=== PATIENT | male | born 1955 | race Caucasian/White ===

== ENCOUNTER 2016-06-27 08:33 | Day surgery (SDC) | payer OTHER ==
[2016-06-24 15:17] VITALS: BMI 25.2
[~2016-06-27 08:33] MED LIST: LACTATED RINGERS 1,000 ML IV SCH
[2016-06-27 08:59] VITALS: RESP 16; TEMP 98
[2016-06-27] MEDS ORDERED: LIDOCAINE 1% 20 ML VIAL (10MG/ML) FOR IV START INTRADERMA ONE (09:03)
[2016-06-27] MEDS ORDERED: PROPOFOL 10 MG/ML 20 ML VIAL IV ONE (09:26)
[2016-06-27] MEDS ORDERED: GLYCOPYRROLATE 0.2 MG/ML 2 ML VIAL ONE (09:26)
[2016-06-27] MEDS ORDERED: LIDOCAINE 1% INJ 10MG/ML (20 ML MDV) ONE (09:26)
--- NOTE | 2016-06-27 10:00 | P.PCN ---
Date of Procedure: 06/27/16 Procedure(s) Performed: Procedure: Total colonoscopy. Preoperative diagnosis: Positive occult blood in the stools and history of polyps. Postoperative diagnosis: Examination within normal limits. Preparation: HalfLytely prep. Sedation: Was provided by anesthesia. Brief clinical history: The patient is a 60-year-old male who is scheduled for this evaluation because of finding of occult blood in his stools. The patient has history of polyps and his last examination was in July 2012. He has no abdominal complaints overt bleeding or anemia. Procedure: With the patient on his left lateral decubitus position and after informed consent and adequate sedation the perianal area was inspected and it did not show any fissures or fistulas. There were no masses felt on digital rectal examination. The Olympus CFQ 160L video colonoscope was then inserted in the rectum in the usual fashion and advanced to the cecum. The mucosa appeared healthy. No polyps or tumors were seen or any obvious diverticular disease or other pathology. I retroflexed endoscope in the rectum before the endoscope was withdrawn. Low-grade internal hemorrhoids were hardly noted and there was no evidence of bleeding. The patient tolerated the procedure well. Plan: The patient was reassured. In the absence of upper GI complaints or anemia, I did not recommend upper GI workup for further workup of his Hemoccult positive stools. This can be kept as a contingency. With his history of polyps I recommended a repeat exam in 5 years from this date.
[2016-06-27 10:17] VITALS: BP 115/75; PULSE 56
== END 2016-06-27 11:08 | disposition home or self-care (01) ==
LOC: ORWHC2ENDO 08:33
DX: R19.5 Other fecal abnormalities (principal); Z86.010 Personal history of colon polyps; K64.8 Other hemorrhoids; E78.5 Hyperlipidemia, unspecified; Z79.899 Other long term (current) drug therapy
CPT/HCPCS: 45378; J2001; J2704

== ENCOUNTER 2016-08-30 09:14 | Inpatient (IN) | payer OTHER ==
[2016-08-30] MEDS ORDERED: NITROGLYCERIN OINT 1 INCH/GM PACKET TOPICAL STA (09:32)
[2016-08-30] MEDS ORDERED: ASPIRIN 81 MG CHEW PO STA (09:32)
[2016-08-30] MEDS ORDERED: HEPARIN SODIUM,PORCINE 5,000 UNIT/ML 1 ML VIAL IV ONE (09:33)
[2016-08-30] MEDS ORDERED: ATORVASTATIN 80 MG TAB PO STA (09:33)
--- NOTE | 2016-08-30 09:42 | ED ---
General Adult HPI - General Chief complaint: Chest Pain Stated complaint: abnormal EKG Time Seen by Provider: 08/30/16 09:15 Source: patient, RN notes reviewed Mode of arrival: ambulatory Limitations: no limitations - History of Present Illness Initial comments: Is a 60-year-old male who presents to the emergency department complaining that he had chest pain on Friday he states it was across his whole chest and into his back he stated he took some Motrin eventually it subsided to a dull ache and that dull ache lasted approximately 2 days per patient states he was also short of breath during this pain. Patient states was no radiation of the arm or the neck. Patient denies any nausea. Patient denied any diaphoretic episodes. Patient states this occurred while he was working in the yard and pushing himself quite hard. Patient states since Friday he's had no chest pain or difficulty breathing. Patient went to his primary medical care doctor's office today and EKG was done and showed an acute NC and he was sent immediately to the emergency department. Dr. Cason wanted to send the patient via and goes but the patient refused and drove himself to the hospital. Patient denies any abdominal pain patient denies nausea vomiting diarrhea. - Related Data Home Medications Medication Instructions Recorded Confirmed Co Q-10 (Unknown Dose) 1 tab PO DAILY 06/24/16 06/27/16 Simvastatin [Simvastatin] 20 mg PO HS 06/24/16 06/27/16 Tamsulosin HCl [Tamsulosin HCl] 0.4 mg PO DAILY 06/24/16 06/27/16 Allergies Allergy/AdvReac Type Severity Reaction Status Date / Time No Known Allergies Allergy Verified 08/30/16 09:24 Review of Systems ROS Statement: Those systems with pertinent positive or pertinent negative responses have been documented in the HPI. ROS Other: All systems not noted in ROS Statement are negative. Past Medical History Additional Past Medical History / Comment(s): SL BLOOD ON STOOL SAMPLE. BPH. was told by urologist has 2 kidney stones - denies passing them General Exam - General Exam Comments Initial Comments: GENERAL: Patient is well-developed and well-nourished. Patient is nontoxic and well- hydrated and is in no acute distress. ENT: Neck is soft and supple. No significant lymphadenopathy is noted. Oropharynx is clear. Moist mucous membranes. Neck has full range of motion without eliciting any pain. EYES: The sclera were anicteric and conjunctiva were pink and moist. Extraocular movements were intact and pupils were equal round and reactive to light. Eyelids were unremarkable. PULMONARY: Unlabored respirations. Good breath sounds bilaterally. No audible rales rhonchi or wheezing was noted. CARDIOVASCULAR: There is a regular rate and rhythm without any murmurs gallops or rubs. Femoral pulses are equal bilaterally ABDOMEN: Soft and nontender with normal bowel sounds. No palpable organomegaly was noted. There is no palpable pulsatile mass. SKIN: Skin is clear with no lesions or rashes and otherwise unremarkable. NEUROLOGIC: Patient is alert and oriented x3. Cranial nerves II through XII are grossly intact. Motor and sensory are also intact. Normal speech, volume and content. Symmetrical smile. MUSCULOSKELETAL: Normal extremities with adequate strength and full range of motion. No lower extremity swelling or edema. No calf tenderness. LYMPHATICS: No significant lymphadenopathy is noted PSYCHIATRIC: Normal psychiatric evaluation. Limitations: no limitations Course Vital Signs 08/30/16 09:15 Temperature 97.1 F L Pulse Rate 75 Respiratory 16 Rate Blood Pressure 135/78 O2 Sat by Pulse 100 Oximetry Medical Decision Making - Medical Decision Making EKG shows normal sinus rhythm at 64 bpm OK interval is 128 QRS is 92 QT interval 394 QTC is 46. Patient's EKG shows ST segment elevation in V2 through V6 as well as 1 and aVL. Patient also has some ST segment elevation in lead 2. Patient currently is symptom-free. Because of the EKG and the patient's symptoms previously I initially called a STEMI overhead and I spoke with Dr. Trista Weston came down and see the patient emergency department we prepped the patient for the Cake Mixer. Patient received heparin Lipitor aspirin and Nitropaste. Critical Care Time Critical Care Time: Yes Total Critical Care Time: 35 Disposition Clinical Impression: ST elevation myocardial infarction (STEMI) Disposition: ADMITTED IP TO THIS HOSP Referrals: Gurmeet Cason MD [Primary Care Provider] - 1-2 days Time of Disposition: 09:42
[2016-08-30] MEDS ORDERED: SODIUM CHLORIDE 0.9% 1,000 ML IV ONE ×2 (09:54→10:57)
--- NOTE | 2016-08-30 09:57 | XR ---
EXAMINATION TYPE: XR chest 1V portable DATE OF EXAM: 08/30/2016 HISTORY: Chest Pain. REFERENCE: NONE. FINDINGS: There are calcified granulomas in both lungs. The lungs are otherwise clear. Pleural space are clear. Heart size is normal. IMPRESSION: 1. NO ACUTE INTRATHORACIC ABNORMALITY. 2. EVIDENCE OF OLD GRANULOMATOUS DISEASE.
[2016-08-30 10:02] LABS: Basophils % (A) 1 %; CH 29.5; CHCM 33.2; Eosinophils # (A) 0.2 k/uL (0-0.7); Eosinophils % (A) 2 %; HCT 39.5 % (39.0-53.0); HDW 2.26; Luc # (Auto) 0.22; Luc % (Auto) 3; Lymphocytes # (A) 1.6 k/uL (1.0-4.8); Lymphocytes % (A) 25 %; MCH 29.3 pg (25.0-35.0); MCHC 32.9 g/dL (31.0-37.0); MCV 89.2 fL (80.0-100.0); Monocytes # (A) 0.7 k/uL (0-1.0); Monocytes % (A) 11 %; Neutrophils # (A) 3.8 k/uL (1.3-7.7); Neutrophils % (A) 58 %; RBC 4.44 m/uL (4.30-5.90); WBC 6.5 k/uL (3.8-10.6); WBC (Perox) 6.69
[2016-08-30] MEDS ORDERED: MIDAZOLAM 2 MG/2 ML VIAL IV ONE (10:03)
[2016-08-30] MEDS ORDERED: MIDAZOLAM 2 MG/2 ML VIAL ONE (10:04)
[2016-08-30] MEDS ORDERED: LIDOCAINE 2% INJ 20 MG/ML SQ ONE (10:06)
[2016-08-30] MEDS ORDERED: fentaNYL (PF) 50 MCG/ML 2 ML AMP ONE (10:07)
[2016-08-30] MEDS ORDERED: fentaNYL (PF) 50 MCG/ML 2 ML AMP IV ONE (10:07)
[2016-08-30 10:12] LABS: Partial Thromboplastin Time 25.6 sec (22.0-30.0); Prothrombin Time 10.2 sec (9.0-12.0)
[2016-08-30 10:14] LABS: ALT 54 U/L (21-72); AST 37 U/L (17-59); Alkaline Phosphatase 73 U/L (38-126); Anion Gap 6 mmol/L; Blood Urea Nitrogen 14 mg/dL (9-20); Calcium 8.9 mg/dL (8.4-10.2); Carbon Dioxide 28 mmol/L (22-30); Chloride 105 mmol/L (98-107); Glucose 110 mg/dL (74-99); Magnesium 2.3 mg/dL (1.6-2.3); Non-African American GFR(MDRD) >60 (>60 ml/min/1.73 sqM); Potassium 4.5 mmol/L (3.5-5.1); Sodium 139 mmol/L (137-145); Total Bilirubin 0.8 mg/dL (0.2-1.3); Total Protein 6.9 g/dL (6.3-8.2)
[2016-08-30] MEDS ORDERED: BIVALIRUDIN BOLUS 250 MG/50 ML IV ONE (10:20)
[2016-08-30] MEDS ORDERED: BIVALIRUDIN 250 MG in SODIUM CHLORIDE 0.9% 50 ML IV ONE (10:21)
[2016-08-30] MEDS ORDERED: niCARdipine Syringe (1,000 mcg/10 mL) IV ONE (10:36)
[2016-08-30] MEDS ORDERED: HYDROmorphone 2 MG/ML 1 ML SYRINGE ONE (10:42)
[2016-08-30] MEDS ORDERED: HYDROmorphone 2 MG/ML 1 ML SYRINGE IV ONE (10:44)
[2016-08-30 10:46] LABS: Troponin I 6.39 ng/mL (0.000-0.034)
[2016-08-30] MEDS ORDERED: CLOPIDOGREL 75 MG TAB ONE (10:48)
[2016-08-30] MEDS ORDERED: NITROGLYCERIN SL TABS 0.4 MG TAB SUBLINGUAL PRN (10:53)
[2016-08-30] MEDS ORDERED: ATROPINE SULFATE 0.1 MG/ML 10ML SYRINGE IV PRN (10:53)
[2016-08-30] MEDS ORDERED: MAG HYDROX/AL HYDROX/SIMETH 30 ML CUP PO PRN (10:53)
[2016-08-30] MEDS ORDERED: RX INFO: IV CONTRAST WAS GIVEN 1 EACH MISC MISCELLANE PRN (10:53)
[2016-08-30] MEDS ORDERED: ZOLPIDEM 5 MG TAB PO PRN (10:53)
[2016-08-30] MEDS ORDERED: IOHEXOL 350 MG/ML 125ML BOTTLE INJ ONE (10:55)
[2016-08-30] MEDS ORDERED: CLOPIDOGREL 75 MG TAB PO ONE (10:57)
--- NOTE | 2016-08-30 11:12 | CONS ---
DATE OF CONSULTATION: CHIEF COMPLAINT: Chest pain. This is a 60-year-old gentleman with history of dyslipidemia who presented to [facility] from his doctor's office with chest pain and ST-segment elevation in the anterior leads. Patient started having severe precordial chest pressure 9/10 intensity on Friday, lasted for a while and has gradually come down and he went to his primary care physician's today where he was found to have an myocardial infarction and sent to the ER. At the time of my evaluation, he still has some chest discomfort and has persistent ST-segment elevation in the precordial leads. I advised the patient to undergo emergent cardiac catheterization with agreeing to performing angioplasty. Patient was explained of risks, benefits, and alternatives, understood and accepted. Past medical history significant for dyslipidemia. MEDICATIONS: He is on a statin. ALLERGIES: Denies any. FAMILY HISTORY: Negative for premature coronary artery disease. SOCIAL HISTORY: Negative for current smoking, EtOH abuse or drug abuse. REVIEW OF SYSTEMS: HEENT is unremarkable. CARDIAC: As described above. RESPIRATORY: Negative. GI: Negative. GENITOURINARY: Negative. ALLERGY/IMMUNOLOGY: Negative. MUSCULOSKELETAL: Negative. ENDOCRINE: Negative. DERMATOLOGY: Negative. CONSTITUTIONAL: Negative. ONCOLOGICAL: Negative. The rest of the system review is not relevant. On exam, comfortable at rest. Vital signs are stable. There is no jugular venous distention. Carotid upstroke is normal. There is no bruit. Chest is clear to auscultation and percussion. Heart exam reveals first and second heart sounds. No gallop. No murmur, no rub. Abdomen is soft, nontender. Exam of the extremities did not reveal edema. Peripheral pulses are felt. FISHERIES MANAGER exam did not reveal focal neurological deficits. ASSESSMENT: Acute anterior wall myocardial infarction with post-infarct angina. Patient probably infarcted over the weekend. PLAN: Patient will undergo emergent cardiac catheterization. His prognosis guarded.
--- NOTE | 2016-08-30 11:14 | CC ---
DATE OF SERVICE: After obtaining informed consent, left heart catheterization and coronary angiogram are performed via the right femoral artery using standard David catheters. Patient tolerated the procedure well without any obvious immediate complications. FINDINGS: 1. HEMODYNAMICS: Left ventricular end-diastolic pressure is 18 mm. There is no significant gradient across the aortic valve. 2. LEFT VENTRICULOGRAM: Left ventriculogram was not performed. 3. ANGIOGRAPHIC DATA: LEFT MAIN CORONARY ARTERY: Left main coronary artery is a normal size vessel and is free of stenosis. It divides into left anterior descending coronary artery and circumflex coronary artery. LAD shows a 95% stenosis in its midportion. Circumflex coronary artery and its branches are free of significant disease. Right coronary artery is a large dominant vessel and is free of significant stenosis. CONCLUSION: A 95% stenosis involving mid left anterior descending artery with thrombus and, probably due to plaque rupture. Patient will undergo angioplasty of the same.
--- NOTE | 2016-08-30 11:41 | PTCA ---
DATE OF SERVICE: 08/30/2016 PROCEDURE: PTCA and stenting of a totally occluded mid LAD performed in the setting of an acute anterior ST-elevation OR. Performed by Dr. Juan Jose Robbins. CLINICAL INFORMATION: Mr. Abhishek Cottrell is a 60-year-old gentleman with a history of hyperlipidemia and benign prosthetic hypertrophy who is not a smoker and has no other major risk factors, came into the hospital with chest pain, which started actually almost 5 to 6 days ago with worst pain almost 5 days ago. He came in with chest pain, had ST elevation and was evaluated and promptly underwent cardiac cath performed by: Dr. Weston. Following the procedure, I went ahead and performed intervention. PROCEDURE NOTE: Existing 6 Andorran introducer in the right femoral artery was used to perform the procedure. I used a standard left David-type guide catheter to cannulate the left coronary artery. A BMW wire was used to cross the lesion. Predilatation was performed using a 12 mm long Trek balloon of 2.5 caliber. I then deployed a 3.0 caliber 15 mm long Xience stent at 12 atmospheres. Patient had chest pain and more prominent ST elevation anteriorly. Excellent angiographic result without complication was achieved. The patient received 600 mg of Plavix and Angiomax bolus and drip was given as per protocol. Excellent angiographic result without complication was achieved. LV gram was then performed in the 30 degree WILEY projection and LV pressures were checked. There was no gradient across the aortic valve and ejection fraction is about 30% with anteroapical and inferoapical akinesia. Reperfusion was established in 85 minutes. This patient received 45 minutes of moderate conscious sedation with IV Versed, Benadryl and also received Dilaudid intravenously. A Perclose device was used to secure hemostasis and patient was sent to the room in a stable condition. Results were discussed with the patient and family. MARIA A
--- NOTE | 2016-08-30 11:44 | LTR ---
August 30, 2016 RE: SimbaAbhishek Dear Dr. Cason; Thank you for the opportunity to participate in the care of Mr. Cottrell. I am pleased to report to you that this gentleman had an excellent angiographic result. He presented today to the hospital with acute AK perhaps a little late, and LAD was subtotally occluded. Excellent angiographic result without complication was achieved. I expect he should recover well, but he will definitely have some damage to the anterior wall. Please find enclosed my detailed PTCA report for your records. Thank you for your referral and please call for questions. With kindest regards. Sincerely yours, RICKY ENCARNACION MD
[2016-08-30 14:53] LABS: Glucose,Whole Blood 151 mg/dL (75-99)
[2016-08-30] MEDS: SODIUM CHLORIDE 0.9% 1,000 ML IV SCH (15:32)
[2016-08-30] MEDS: LISINOPRIL 5 MG TAB PO SCH (20:54)
[2016-08-30] MEDS: TAMSULOSIN 0.4 MG CAP.ER.24H PO SCH (20:54)
[2016-08-30] MEDS: METOPROLOL TARTRATE 25 MG TAB PO SCH (20:54)
--- NOTE | 2016-08-30 22:55 | HP ---
DATE OF ADMISSION: 08/30/2016 PRESENTING COMPLAINT: Chest pain. HISTORY OF PRESENTING COMPLAINT: A very pleasant 60-year-old patient of Dr. Cason whose chronic stable medical conditions include hypercholesterolemia, BPH, kidney stones. Patient last Friday, that is about 6 days ago, was digging a trench at about 50 feet at the back of his house, then used concrete blocks to put the mud back on in. After having lunch with his , he felt extremely tired and exhausted. Next course of few days, he kept having some chest pain and tired, rundown. He would do some things, then he would have some left-sided chest pressure. He finally got an appointment with his family doctor, got an EKG done. He was sent right down to the ER, where he was shown to have an acute ST-elevation TN. Patient was taken to the cardiac labor contractor, had a cardiac cath by Dr. Francisco Weston followed by intervention by Dr. Juan Jose Robbins with a stent in the totally occluded mid LAD. Patient is currently sitting up in a chair, not in distress. Patient has some associated shortness of breath, discomfort and some radiation to the left shoulder. REVIEW OF SYSTEMS: CONSTITUTIONAL: Tired. HEENT: None. RESPIRATORY: None. CARDIOVASCULAR: As above. GASTROINTESTINAL: None. GENITOURINARY: BPH symptoms. DERMATOLOGICAL: None. HEMATOLOGICAL: None. LYMPHATICS: None. PSYCHIATRY: None. NEUROLOGICAL: None. PAST MEDICAL HISTORY: Kidney stones, increased cholesterol, BPH. PAST SURGICAL HISTORY: Bilateral carpal tunnel release, colonoscopy, right shoulder injections. SOCIAL HISTORY: . Works for [employer]. No smoking. alcohol occasionally. FAMILY HISTORY: Diabetes, prostate cancer. HOME MEDICATIONS: 1. CoQ10, 100 mg p.o. daily. 2. Terazosin 5 mg q.h.s. 3. Cialis 5 mg p.o. daily p.r.n. 4. Simvastatin 20 mg p.o. daily. 5. Fish oil 1 capsule p.o. daily. ALLERGIES: None. On examination, temperature 98.1, pulse 70, respiration 22, blood pressure 112/68, pulse ox 92% on room air. GENERAL APPEARANCE: Average build, sitting in chair, not in distress. EYES: Pupils equal. Conjunctivae normal. HEENT: Oral cavity normal. NECK: JVD not raised. Mass not palpable. RESPIRATORY: Effort normal. Lungs are clear. CARDIOVASCULAR: First and second sounds normal. No edema. ABDOMEN: Soft, nontender. Liver and spleen not palpable. LYMPHATIC: No lymph node palpable in neck or axillae. PSYCHIATRY: Alert and oriented x3. Mood and affect normal. NEUROLOGICAL: Pupils equal. Cranial nerves grossly intact. Power and sensation grossly intact. INVESTIGATIONS: EKG: ST elevation in anterior leads. Troponin 6.3, repeat 7.4. ASSESSMENT: 1. Acute ST-elevation myocardial infarction in the anterior wall. Patient requiring emergent cardiac catheterization with stent to the left anterior descending coronary artery. 2. Kidney stones, asymptomatic. 3. Hypercholesterolemia. 4. Benign prostatic hypertrophy. PLAN: This patient is status post stent to the LAD. Medications include: 1. Aspirin. 2. Lipitor. 3. Plavix. 4. Zestril. 5. Flomax. Care was discussed with the patient.
[2016-08-31 05:36] LABS: Basophils % (A) 1 %; CH 29.5; CHCM 33.2; Eosinophils # (A) 0.2 k/uL (0-0.7); Eosinophils % (A) 3 %; HCT 34.7 % (39.0-53.0); HDW 2.27; HGB 11.3 gm/dL (13.0-17.5); Luc # (Auto) 0.13; Luc % (Auto) 2; Lymphocytes # (A) 1.5 k/uL (1.0-4.8); Lymphocytes % (A) 24 %; MCHC 32.5 g/dL (31.0-37.0); MCV 89.1 fL (80.0-100.0); Mean Platelet Volume 6.8; Monocytes # (A) 0.5 k/uL (0-1.0); Monocytes % (A) 8 %; Neutrophils # (A) 3.9 k/uL (1.3-7.7); Neutrophils % (A) 63 %; RDW 12.9 % (11.5-15.5); WBC 6.3 k/uL (3.8-10.6); WBC (Perox) 6.67
[2016-08-31 05:51] LABS: Anion Gap 8 mmol/L; Blood Urea Nitrogen 13 mg/dL (9-20); Calcium 8.6 mg/dL (8.4-10.2); Carbon Dioxide 24 mmol/L (22-30); Chloride 108 mmol/L (98-107); Glucose 93 mg/dL (74-99); Non-African American GFR(MDRD) >60 (>60 ml/min/1.73 sqM); Potassium 4.6 mmol/L (3.5-5.1); Sodium 140 mmol/L (137-145)
[2016-08-31] MEDS: SODIUM CHLORIDE 0.9% 1,000 ML IV SCH (09:32)
[2016-08-31] MEDS: METOPROLOL TARTRATE 25 MG TAB PO SCH ×2 (09:34→20:15)
[2016-08-31] MEDS: LISINOPRIL 5 MG TAB PO SCH (09:35)
[2016-08-31] MEDS: ASPIRIN 81 MG CHEW PO SCH (09:35)
[2016-08-31] MEDS: CLOPIDOGREL 75 MG TAB PO SCH (09:35)
--- NOTE | 2016-08-31 12:11 | PN ---
Abhishek is a 60-year-old gentleman who is admitted to hospital with acute anterior wall myocardial infarction and underwent an emergent cardiac catheterization with angioplasty. I think he already completed his myocardial infarction by the time he came to hospital. His troponin was at 6.3 on presentation, went up to 7.4 and it is down to 6.9. Hemoglobin is 11.3. This morning he is doing well and is free of symptoms. Denies chest pain or difficulty in breathing. Currently on aspirin, Lipitor, Plavix, Zestril, Lopressor 25 b.i.d. Patient and the had lots of questions, I answered them at length. On exam, comfortable at rest. Vital signs are stable. There is no jugular venous distention. Chest exam reveals good air entry bilaterally. Heart exam reveals first and second heart sounds. No gallop. No murmur. Abdomen is soft, nontender. Exam of the extremities did not reveal any edema. Peripheral pulses are felt. Groin is free of bleeding, bruit, hematoma. Foot pulses are intact. ASSESSMENT: 1. Acute anterior wall myocardial infarction, status post catheterization and angioplasty of mid left anterior descending lesion. 2. History of hypertension. 3. History of dyslipidemia. PLAN: I will continue the patient on current medications and transfer him to selective care. I am going to check his echocardiogram.
--- NOTE | 2016-08-31 13:11 | ECHOF ---
Referral Reason:pain/shortness of breath/post procedure MEASUREMENTS -------- HEIGHT: 175.3 cm WEIGHT: 77.1 kg BP: 120/50 IVSd: 1.5 cm (0.6 - 1.1) LVIDd: 4.7 cm (3.9 - 5.3) LVPWd: 1.3 cm (0.6 - 1.1) IVSs: 1.7 cm LVIDs: 3.5 cm LVPWs: 1.6 cm LA Diam: 3.3 cm (2.7 - 3.8) LAESV Index (A-L): 20.64 ml/m Ao Diam: 3.1 cm (2.0 - 3.7) AV Cusp: 1.0 cm (1.5 - 2.6) LA Diam: 3.4 cm (2.7 - 3.8) MV EXCURSION: 24.295 mm (> 18.000) MV EF SLOPE: 214 mm/s (70 - 150) EPSS: 0.2 cm MV E Clark: 0.65 m/s MV DecT: 162 ms MV A Clark: 0.46 m/s MV E/A Ratio: 1.42 RAP: 5.00 mmHg RVSP: 30.01 mmHg FINDINGS -------- Sinus rhythm. This was a technically adequate study. There is mild concentric left ventricular hypertrophy. Overall left ventricular systolic function is severely impaired with, an EF between 25 - 30 %. Anterseptal Hypokinesis Inferior Hypokinesis Septal Hypokinesis [place] Hypokinesis. The right ventricle is normal in size. Normal LA size by volume 22+/-6 ml/m2. The right atrial size is normal. There is mild aortic valve sclerosis. There is no evidence of aortic regurgitation. Mild mitral annular calcification present. Mild mitral regurgitation is present. Mild tricuspid regurgitation present. There is no evidence of pulmonary hypertension. The right ventricular systolic pressure, as measured by Doppler, is 30.01mmHg. There is no pulmonic regurgitation present. There is no pericardial effusion. CONCLUSIONS -------- 1. There is mild concentric left ventricular hypertrophy. 2. Mild tricuspid regurgitation present. 3. There is no evidence of pulmonary hypertension. 4. The right ventricular systolic pressure, as measured by Doppler, is 30.01mmHg. 5. There is no pericardial effusion. 6. Overall left ventricular systolic function is severely impaired with, an EF between 25 - 30 %. 7. Anterseptal Hypokinesis 8. Inferior Hypokinesis 9. Septal Hypokinesis 10. [place] Hypokinesis. 11. There is mild aortic valve sclerosis. 12. Mild mitral annular calcification present. 13. Mild mitral regurgitation is present. SHIFT LEADER: Izabel Harris RDCS
[2016-08-31 13:14] VITALS: BMI 25.1
[2016-08-31] MEDS: TAMSULOSIN 0.4 MG CAP.ER.24H PO SCH (20:15)
[2016-08-31] MEDS: ATORVASTATIN 80 MG TAB PO SCH (20:15)
[2016-09-01] MEDS: METOPROLOL TARTRATE 25 MG TAB PO SCH ×2 (08:37→20:32)
[2016-09-01] MEDS: CLOPIDOGREL 75 MG TAB PO SCH (08:38)
[2016-09-01] MEDS: LISINOPRIL 5 MG TAB PO SCH (08:38)
[2016-09-01] MEDS: ASPIRIN 81 MG CHEW PO SCH (08:38)
--- NOTE | 2016-09-01 09:54 | DS ---
DATE OF ADMISSION: 08/30/2016 DATE OF DISCHARGE: PRESENTING COMPLAINT: Chest pain. INTERVAL HISTORY: This patient presented with acute IN, status post ( ) sitting up, been up to the bathroom. No chest pain, short of breath tolerating his breakfast. Telemetry normal. Review of systems done for constitutional, cardiovascular, GI, pulmonary, relevant findings as above. Current medications are reviewed. On examination, pulse 76, respiratory rate 22, blood pressure 114/72. Pulse ox 99% on room air. GENERAL APPEARANCE: Sitting up in a chair, comfortable. EYES: Pupils equal. Conjunctivae normal. NECK: JVD not raised. Mass not palpable. RESPIRATORY: Effort normal. LUNGS: Clear. CARDIOVASCULAR: First and second sounds normal. No edema. ABDOMEN: Soft, nontender. Liver and spleen not palpable. PSYCHIATRY: Alert and oriented x3. Mood and affect normal. INVESTIGATIONS: Potassium 4.6. ASSESSMENT: 1. Acute ST elevation myocardial infarction of the anterior wall, patient requiring emergent cardiac cath with stent to the left anterior descending coronary artery. 2. Kidney stone, asymptomatic. 3. Hypercholesterolemia. 4. Benign prostatic hypertrophy. PLAN: Care was discussed with the patient, continue current medication and treatment plan. Patient encouraged to ambulate. The patient will be transferred out of the ICU if okay with cardiology.
--- NOTE | 2016-09-01 13:22 | PN ---
60-year-old gentleman was admitted to hospital with acute anterior wall myocardial infarction. Doing well and is free of symptoms today. Echocardiogram showed severe LV systolic dysfunction. The patient is currently on aspirin, Plavix, Zestril, Lopressor and Lipitor. On exam, comfortable at rest. Vital signs are stable. There is no jugular venous distention. Chest exam reveals good air entry bilaterally. Heart exam reveals first and second heart sounds. No gallop. ABDOMEN: Soft. Exam of the extremities did not reveal edema. Peripheral pulses are felt. ASSESSMENT: 1. Acute anterior wall myocardial infarction. 2. Ischemic cardiomyopathy with severe left ventricular dysfunction. PLAN: We will continue with the current medications including the dual antiplatelet therapy and decide on further course of action based on how he does.
[2016-09-01] MEDS: ATORVASTATIN 80 MG TAB PO SCH (20:32)
[2016-09-01] MEDS: TAMSULOSIN 0.4 MG CAP.ER.24H PO SCH (20:33)
[2016-09-02 04:41] VITALS: RESP 18
--- NOTE | 2016-09-02 06:25 | PN ---
DATE OF SERVICE: 09/01/2016 PRESENTING COMPLAINT: Chest pain. INTERVAL HISTORY: This is a patient who is status post stent to the mid LAD. Patient is sitting in the chair tolerating breakfast. Pain controlled. Ambulating in the hallways. Patient does complain of dizziness while sitting in the chair and when moving around. Review of systems done for constitutional, cardiovascular, GI, pulmonary with relevant findings as above. CURRENT MEDICATIONS: Lipitor 80 mg p.o. at bedtime, Plavix 75 mg p.o. daily, Zestril 2.5 mg p.o. daily, Lopressor 25 mg p.o. b.i.d. PHYSICAL EXAM: VITAL SIGNS: Temperature 97.8, pulse 72, respiratory rate 13, blood pressure 105/61, oxygen saturation 99% room air GENERAL APPEARANCE: Patient is sitting up in the chair. No distress noted. EYES: Pupils equal. Conjunctivae normal. NECK: JVD not raised. Mass not palpable. RESPIRATORY: Effort normal. LUNGS: Diminished bilaterally. CARDIOVASCULAR: First and second sounds noted. No edema. ABDOMEN: Soft, nontender. Liver and spleen not palpable PSYCHIATRY: Alert and oriented x3. Mood and affect are normal. INVESTIGATIONS: Hemoglobin 11.3. ASSESSMENT: 1. Acute ST elevation myocardial infarction in the anterior wall. Patient is status post cardiac catheterization with stent to the left anterior descending coronary artery, improving. 2. Kidney stones, asymptomatic. 3. Hypercholesterolemia. 4. Benign prostatic hypertrophy. 5. Dizziness, not otherwise specified. PLAN: Orthostatic vital signs to be taken to evaluate patient's dizziness. Will continue current medication and treatment plan. Will monitor. Patient was seen and examined by nurse practitioner, Mariya Huang, and all elements of the case discussed with attending, Dr. Scruggs.
[2016-09-02 06:41] LABS: Basophils # (A) 0.1 k/uL (0-0.2); Basophils % (A) 1 %; CH 29.5; CHCM 33.1; Eosinophils # (A) 0.3 k/uL (0-0.7); Eosinophils % (A) 4 %; HCT 42.3 % (39.0-53.0); HDW 2.32; HGB 13.6 gm/dL (13.0-17.5); Luc % (Auto) 2; Lymphocytes # (A) 1.6 k/uL (1.0-4.8); Lymphocytes % (A) 20 %; MCH 28.7 pg (25.0-35.0); MCHC 32.1 g/dL (31.0-37.0); MCV 89.4 fL (80.0-100.0); Mean Platelet Volume 6.6; Monocytes # (A) 0.8 k/uL (0-1.0); Monocytes % (A) 9 %; Neutrophils # (A) 5.3 k/uL (1.3-7.7); Neutrophils % (A) 64 %; RBC 4.73 m/uL (4.30-5.90); RDW 12.8 % (11.5-15.5); WBC 8.3 k/uL (3.8-10.6); WBC (Perox) 8.51
[2016-09-02 06:56] LABS: Anion Gap 10 mmol/L; Blood Urea Nitrogen 19 mg/dL (9-20); Carbon Dioxide 23 mmol/L (22-30); Chloride 107 mmol/L (98-107); Glucose 94 mg/dL (74-99); Non-African American GFR(MDRD) >60 (>60 ml/min/1.73 sqM); Potassium 4.8 mmol/L (3.5-5.1); Sodium 140 mmol/L (137-145)
--- NOTE | 2016-09-02 07:50 | PN ---
ADDENDUM TO PROGRESS NOTE: DATE OF SERVICE: 08/31/2016 Patient's note dictated on 08/31/16 at 12:21, date transcribed 09/01/16 at 0953. This is a progress note and not a discharge summary.
[2016-09-02] MEDS: CLOPIDOGREL 75 MG TAB PO SCH (08:23)
[2016-09-02] MEDS: METOPROLOL TARTRATE 25 MG TAB PO SCH (08:23)
[2016-09-02] MEDS: ASPIRIN 81 MG CHEW PO SCH (08:23)
[2016-09-02 08:30] VITALS: PULSE 74
--- NOTE | 2016-09-02 09:09 | PN ---
DATE OF SERVICE: 09/01/2016 ATTENDING NOTE: This patient was seen and examined by me on 09/01/16. I reviewed the note of my nurse practitioner, Ms. Huang. Discussed additional findings as below. Patient is status post LAD stent, complaining of dizziness, even while sitting up. Blood pressure is running on the lower side. Otherwise been up in the hallway. On examination, blood pressure 105/61, pulse ox 99% on room air. Lungs are clear. CARDIOVASCULAR: First and second sounds normal. No edema/ Hemoglobin is 13.6. ASSESSMENT: 1. Acute ST elevation myocardial infarction. 2. Relative hypotension probably from medications, symptomatic. PLAN: At this point, will cut back on dose of Zestril to 2.5 mg and move it to the afternoon and see how he feels. Care was discussed with the patient and family at the bedside.
--- NOTE | 2016-09-02 10:59 | P.PN ---
Subjective Principal diagnosis: Anterior STEMI This is a 60-year-old gentleman who presented to the hospital with an acute anterior wall ST elevation myocardial infarction. He underwent angioplasty with stent placement of the left anterior descending artery. Echocardiogram with Doppler study was performed which revealed an ejection fraction of 25-30% with anterior septal, inferior, septal, and apical hypokinesia. Patient states yesterday he was having some dizziness and lightheadedness especially after taking a beta good. Today he has not yet experienced those symptoms, and he has been up ambulating with cardiac rehab in the hallway today. He denies any chest pain no difficulty in breathing. All of his monitor strips have been reviewed, patient has had no evidence of ventricular arrhythmias. Blood pressure this morning 118/70, no evidence of orthostatic hypotension. Heart rate in the 70s area Objective - Vital Signs Vital signs: Vital Signs Temp 97.8 F 09/02/16 08:24 Pulse 74 09/02/16 09:13 Resp 18 09/02/16 08:24 BP 115/69 09/02/16 09:13 Pulse Ox 97 09/02/16 09:13 Intake & Output 09/01/16 09/02/16 09/02/16 18:59 06:59 18:59 Intake Total 620 480 Balance 620 480 Weight 77 kg 72.8 kg Intake: Oral 620 480 Other: Voiding Method Urinal Urinal Urinal # Voids 2 1 - Exam PHYSICAL EXAMINATION: HEENT: Head is atraumatic, normocephalic. Pupils equal, round. Neck is supple. There is no elevated jugular venous pressure. HEART EXAMINATION: Heart S1, S2 normal. No murmur or gallop heard. CHEST EXAMINATION: Lungs are clear to auscultation and precussion. No chest wall tenderness is noted on palpation or with deep breathing. ABDOMEN: Soft, nontender. Bowel sounds are heard. No organomegaly noted. EXTREMITIES: 2+ peripheral pulses with no evidence of peripheral edema and no calf tenderness noted. NEUROLOGIC patient is awake, alert and oriented -3. . - Labs CBC & Chem 7: 09/02/16 06:04 09/02/16 06:04 Assessment and Plan (1) ST elevation (STEMI) myocardial infarction involving left anterior descending coronary artery Status: Acute (2) Hyperlipemia Status: Acute (3) Ischemic cardiomyopathy Status: Acute Plan: From cardiology's perspective, patient does have evidence of ischemic cardiomyopathy with a documented ejection fraction of 25-30%. I did have a discussion with Dr. Weston regarding a LifeVest on discharge, patient has had no evidence here of any ventricular arrhythmias. He will be discharged home today , and a follow-up echo will be performed in the office. The patient will be discharged home on aspirin 81 mg daily, Lipitor 80 mg daily, Plavix 75 mg daily , Cipro 2.5 mg daily, metoprolol tartrate 25 mg one tablet by mouth twice a day , Flomax 0.4 mg at at bedtime, and sublingual nitroglycerin as needed for chest pain. He has been provided prescriptions for all of the above medications. DNP note has been reviewed, I agree with a documented findings and plan of care. Patient was seen and examined.
[2016-09-02 11:45] VITALS: BP 116/75; TEMP 97.6
[2016-09-02] MEDS ORDERED: LISINOPRIL 2.5 MG TAB PO SCH (14:00)
--- NOTE | 2016-09-03 10:20 | DS ---
DATE OF ADMISSION: 08/30/2016 DATE OF DISCHARGE: 09/02/2016 FINAL DIAGNOSES: 1. Acute ST-elevation myocardial infarction of the anterior wall requiring emergent cardiac catheter with stent to the left anterior descending coronary artery. 2. Kidney stones, asymptomatic. 3. Hypercholesterolemia. 4. Benign prostatic hypertrophy. 5. Ischemic cardiomyopathy; ejection fraction of 20% to 25%. HOSPITAL COURSE: This patient presented with acute ST elevation myocardial infarction now leading to a stent of the LAD. A 2-D echo showed the EF of 20% to 25%. By the time of discharge, up and about. Doing better. Care was discussed with the patient. CONSULTATIONS: 1. Dr. Kriss Weston from Cardiology. 2. Dr. Juan Jose Robbins from Interventional Cardiology. On exam, lungs are clear. CARDIOVASCULAR: First and second sounds are normal. DISCHARGE MEDICATIONS: 1. Flomax 0.4 mg q.h.s. 2. Nitrostat 0.4 sublingual q.5 p.r.n. 3. Lopressor 25 p.o. b.i.d. 4. Zestril 2.5 mg p.o. at 2 p.m. 5. Plavix 75 mg a day. 6. Lipitor 80 mg q.h.s. 7. Aspirin 81 mg p.o. daily. 8. CoQ10 one hundred mg p.o. daily. 9. Terazosin 5 mg p.o. q.h.s. 10. Fish oil 1000 mg p.o. daily. Follow up with Dr. Gurmeet Cason on 09/04/2016; follow up with Dr. Francisco Weston on 09/12/2016.
== END 2016-09-02 13:06 | disposition home or self-care (01) | DRG 247 ==
LOC: EC 09:14 → 6ICU 09:42 → 6SEL 09-01 16:12
PROVIDERS: ADMIT Hospitalist; ATTEND Hospitalist
PROC: B2111ZZ Fluoroscopy of Multiple Coronary Arteries using Low Osmolar Contrast (ICD-10-PCS; principal; 2016-08-30 10:05)
PROC: 4A023N7 Measurement of Cardiac Sampling and Pressure, Left Heart, Percutaneous Approach (ICD-10-PCS; principal; 2016-08-30 10:05)
PROC: 027034Z Dilation of Coronary Artery, One Artery with Drug-eluting Intraluminal Device, Percutaneous Approach (ICD-10-PCS; 2016-08-30 10:05)
DX: I21.02 ST elevation (STEMI) myocardial infarction involving left anterior descending coronary artery (principal); I23.7 Postinfarction angina; I95.9 Hypotension, unspecified; I10 Essential (primary) hypertension; E78.5 Hyperlipidemia, unspecified; E78.00 Pure hypercholesterolemia, unspecified; I25.5 Ischemic cardiomyopathy; N20.0 Calculus of kidney; N40.0 Benign prostatic hyperplasia without lower urinary tract symptoms; Z79.82 Long term (current) use of aspirin; Z79.899 Other long term (current) drug therapy; R42 Dizziness and giddiness; T50.905A Adverse effect of unspecified drugs, medicaments and biological substances, initial encounter
CPT/HCPCS: 71010; 80048; 80053; 82550; 82553; 83735; 84484; 85025; 85610; 85730; 93005; 93306; 93458

== ENCOUNTER → 2017-08-20 | Outpatient (CLI) | payer OTHER ==
--- NOTE | 2017-08-20 14:11 | CT ---
EXAMINATION TYPE: CT abdomen w con DATE OF EXAM: 08/20/2017 COMPARISON: NONE INDICATION: Microscopic hematuria DLP: 684.50 mGycm, Automated exposure control for dose reduction was used. CONTRAST: 100 ml mL of Isovue 300. Study performed with Oral Contrast TECHNIQUE: Axial images were obtained from above the diaphragm to the pubic rami in the axial plane a t 5 mm thick sections. Reconstructed images are reviewed on the computer in the coronal plane. FINDINGS: Limited CT sections are obtained the lung bases. The lung bases are clear. CT ABDOMEN: Liver: Normal Spleen: Normal Pancreas: Normal Adrenal glands: The adrenal glands are normal. Gallbladder: Normal Kidneys: No masses are evident. No hydronephrosis is present. No cysts are present. Delayed images were obtained through the kidneys, which remain unremarkable. Note is made of punctate calcification s within the right kidney. Please see noncontrast CT abdomen study same date. Aorta: Normal Inferior vena cava: Normal. Bowel: Loops of bowel within the abdomen and visualized pelvis are normal. There are loops of bow el which are incompletely distended or lack oral contrast limiting their evaluation. IMPRESSIONS: 1. Punctate right renal stones.
--- NOTE | 2017-08-20 14:17 | CT ---
EXAMINATION TYPE: CT abdomen pelvis wo con DATE OF EXAM: 08/20/2017 COMPARISON: CT abdomen postcontrast 08/20/2017 INDICATION: Microscopic hematuria DLP: 684.50 mGycm, Automated exposure control for dose reduction was used. CONTRAST: 0 mL of Isovue 300. Study performed without Oral Contrast TECHNIQUE: Axial images were obtained from above the diaphragm to the pubic rami in the axial plane a t 5 mm thick sections. Reconstructed images are reviewed on the computer in the coronal plane. FINDINGS: Limited CT sections are obtained the lung bases. The lung bases are clear. CT ABDOMEN: Liver: Normal Spleen: Normal Pancreas: Normal Adrenal glands: The adrenal glands are normal. Gallbladder: Normal Kidneys: No masses are evident. No hydronephrosis is present. No cysts are present. There is a 0.3 cm posterior lower pole left renal calcification. Some faint additional adjacent calcification may b e present. Within the inferior pole right kidney are several calcifications. The anterior inferior ri ght kidney: Measures 0.3 cm. A lateral inferior pole renal stone measures 0.3 cm a mid to inferior ri ght renal calcification measures 0.3 cm. These calcifications are nonobstructing. No hydronephrosis o r hydroureter is evident. Aorta: Minimal calcification is within the right common iliac artery. Aortic contains no suspicious c alcification. Inferior vena cava: Normal. CT PELVIS: Loops of bowel within the abdomen and pelvis are normal. There are loops of bowel which are incom pletely distended or lack oral contrast limiting their evaluation. Appendix: Normal as visualized. Urinary bladder: Normal. No intravesical calcifications are evident. Genitourinary structures: Prostate is prominent. Prostate calcification is also noted. Osseous structures: No suspicious lytic or sclerotic lesions. There is a sclerotic area within the po sterior lateral L2 vertebral level. Postcontrast delayed images were obtained. The kidneys remain unremarkable. IMPRESSIONS: 1. Bilateral nonobstructing inferior pole renal stones. 2. Prostate prominence.
== END | disposition home or self-care (01) ==
LOC: RADCTMAIN 08:08
PROVIDERS: ATTEND Urology
DX: N20.0 Calculus of kidney (principal)
CPT/HCPCS: 74160; 74176; Q9967

== ENCOUNTER → 2020-12-05 | Outpatient (CLI) | payer OTHER ==
--- NOTE | 2020-12-05 13:14 | US ---
EXAMINATION TYPE: US abdomen complete DATE OF EXAM: 12/05/2020 COMPARISON: CT, renal US CLINICAL HISTORY: R10.11 right upper quad pain. Right lateral abdomen pain and pressure; history of r enal stones, CAD with Stent EXAM MEASUREMENTS: Liver Length: 12.4 cm Gallbladder Wall: 0.2 cm CBD: 0.2 cm Spleen: 8.6 cm Right Kidney: 10.3 x 4.9 x 4.9 cm Left Kidney: 9.9 x 6.0 x 5.6 cm Pancreas: wnl Liver: wnl Gallbladder: very small echogenic wall foci noted may represent wall polyps noted on images #[id number], [id number], [id number]. Evidence for sonographic Delgado's sign: no CBD: wnl Spleen: wnl Right Kidney: cluster of shadowing renal calcifications seen mid pole = 0.6 x 0.7 x 0.4cm. Left Kidney: hyperechoic renal calcification seen mid lower pole = 0.5 x 0.3 x 0.2cm Upper IVC: wnl Abd Aorta: wnl IMPRESSION: 1. Suspected small polyps within the gallbladder. 2. Nonobstructing bilateral renal stones.
== END | disposition home or self-care (01) ==
LOC: RADUSWWP 10:31
PROVIDERS: ATTEND Family Medicine
DX: N20.0 Calculus of kidney (principal)
CPT/HCPCS: 76700

== ENCOUNTER → 2020-12-13 | Outpatient (CLI) | payer OTHER ==
--- NOTE | 2020-12-13 09:51 | NM ---
EXAMINATION TYPE: NM hepatobiliary w EF DATE OF EXAM: 12/13/2020 COMPARISON: NONE INDICATION: Right upper quadrant pain TECHNIQUE: After the intravenous administration of 5.4 mCi Tc 99m Mebrofenin hepatobiliary scintigrap hy is performed. Images were obtained immediately post injection. FINDINGS: There is prompt uptake and excretion of radiotracer by the liver. Extrahepatic ducts are identified at 4 minutes. The gallbladder is visualized within 6 minutes. Small bowel activity is noted within 60 minutes. At one hour 8 ounces of oral ensure plus is given to mimic CCK and gallbladder ejection fraction is c alculated at 66 %, which is in the normal range. (Normal >35% and <80%.). IMPRESSION: 1. Normal hepatobiliary scan
== END | disposition home or self-care (01) ==
LOC: RADNMMAIN 12-05 10:21
PROVIDERS: ATTEND Family Medicine
DX: R10.11 Right upper quadrant pain (principal)
CPT/HCPCS: 78226; A9537

== ENCOUNTER → 2021-03-16 | Outpatient (CLI) | payer BC, OTHER ==
--- NOTE | 2021-03-17 09:35 | CT ---
EXAMINATION TYPE: CT abdomen pelvis w con DATE OF EXAM: 03/16/2021 COMPARISON: 08/20/2017 HISTORY: abdominal pain, pancreatitis CT DLP: 574.3 mGycm Automated exposure control for dose reduction was used. TECHNIQUE: Helical acquisition of images was performed from the lung bases through the pelvis. CONTRAST: Performed with Oral Contrast and with IV Contrast, patient injected with 100 mL of Isovue 300. FINDINGS: LUNG BASES: No significant abnormality is appreciated. LIVER/GB: No significant abnormality is appreciated. PANCREAS: No significant abnormality is seen. SPLEEN: No significant abnormality is seen. ADRENALS: No significant abnormality is seen. KIDNEYS: Single tiny 3 mm nonobstructing renal calcifications bilaterally unchanged compared to previ ous. FREE AIR: No free air is visualized. RETROPERITONEAL ADENOPATHY: None visualized REPRODUCTIVE ORGANS: No significant abnormality is seen URINARY BLADDER: No significant abnormality is seen. PELVIC ADENOPATHY: None visualized. OSSEOUS STRUCTURES: No significant abnormality is seen. BOWEL: No significant abnormality is seen. IMPRESSION: 1. 3 MM NONOBSTRUCTING RENAL CALCIFICATIONS BILATERALLY UNCHANGED COMPARED TO PREVIOUS. 2. NO ABNORMALITY OF THE PANCREAS. 3. NO ACUTE CHANGES WITHIN THE ABDOMEN OR PELVIS.
== END | disposition home or self-care (01) ==
LOC: RADCTMAIN 14:42
PROVIDERS: ATTEND Surgery
DX: N28.89 Other specified disorders of kidney and ureter (principal)
CPT/HCPCS: 74177; Q9967

== ENCOUNTER 2021-07-17 09:16 | Day surgery (SDC) | payer OTHER ==
[2021-07-12 13:00] VITALS: BMI 24.3
[~2021-07-17 09:16] MED LIST changes: -LACTATED RINGERS 1,000 ML IV SCH; +LIDOCAINE 1% (10MG/ML) FOR IV START INTRADERMA PRN
[2021-07-17 09:59] VITALS: TEMP 97.8
[2021-07-17] MEDS ORDERED: LIDOCAINE 1% (10MG/ML) FOR IV START INTRADERMA ONE (09:59)
[2021-07-17] MEDS: LACTATED RINGERS 1,000 ML IV SCH ×2 (09:59→10:32)
--- NOTE | 2021-07-17 10:31 | P.GSHP ---
History of Present Illness H&P Date: 07/17/21 Chief Complaint: Screening, history of polyps, epigastric pain 65-year-old male known from office visits. Patient with complaints of epigastric pain, vague abdominal crampy pain, personal history of colon polyps. Last colonoscopy 5 years ago. Past Medical History Past Medical History: Hyperlipidemia, Myocardial Infarction (ME), Prostate Disorder, Renal Disease Additional Past Medical History / Comment(s): 08/30/16 STEMI. BPH. Hx 2 kidney stones. Last Myocardial Infarction Date:: 08/30/16 History of Any Multi-Drug Resistant Organisms: None Reported Past Surgical History: Heart Catheterization With Stent, Orthopedic Surgery Additional Past Surgical History / Comment(s): BILATERAL CARPAL TUNNEL RELEASES, COLONOSCOPY, RIGHT SHOULDER INJECTIONS, 1 CARDIAC STENT. Past Anesthesia/Blood Transfusion Reactions: No Reported Reaction Additional Past Anesthesia/Blood Transfusion Reaction / Comment(s): Mom PONV. Date of Last Stent Placement:: 08/30/16 Past Psychological History: No Psychological Hx Reported Smoking Status: Never smoker Past Alcohol Use History: Occasional Past Drug Use History: None Reported - Past Family History Father Family Medical History: Cancer Additional Family Medical History / Comment(s): PROSTATE CA Mother Family Medical History: Cancer, Diabetes Mellitus Additional Family Medical History / Comment(s): Pancreatic cancer. Medications and Allergies Home Medications Medication Instructions Recorded Confirmed Type Etlan-3/Dha/Epa/Fish Oil [Fish Oil] 1 cap PO DAILY 08/30/16 07/17/21 History Aspirin 81 mg PO DAILY 09/02/16 07/17/21 Rx Atorvastatin [Lipitor] 80 mg PO HS #30 tab 09/02/16 07/17/21 Rx Metoprolol Tartrate [Lopressor] 25 mg PO BID #30 tab 09/02/16 07/17/21 Rx Nitroglycerin Sl Tabs [Nitrostat] 0.4 mg SUBLINGUAL Q5M PRN #30 tab 09/02/16 07/17/21 Rx Elderberry (Unknown Dose) 1 tab PO DAILY 07/12/21 07/17/21 History Glucosam/Romero-Msm1/C/Gibson/Bosw 1 each PO DAILY 07/12/21 07/17/21 History [Glucosamine-Chondroitin Tablet] Tamsulosin [Flomax] 0.4 mg PO DAILY 07/12/21 07/17/21 History Turmeric (Unknown Dose) 1 tab PO DAILY 07/12/21 07/17/21 History Vitamin D (Unknown Dose) 1 tab PO DAILY 07/12/21 07/17/21 History lisinopriL [Zestril] 2.5 mg PO DAILY 07/12/21 07/17/21 History Allergies Allergy/AdvReac Type Severity Reaction Status Date / Time No Known Allergies Allergy Verified 07/17/21 09:58 Surgical - Exam Vital Signs Temp Pulse Resp BP Pulse Ox 97.8 F 60 18 124/76 96 07/17/21 09:58 07/17/21 09:58 07/17/21 09:58 07/17/21 09:58 07/17/21 09:58 Physical exam: General: Well-developed, well-nourished HEENT: Normocephalic, sclerae nonicteric Abdomen: Nontender, nondistended Extremities: No edema Neuro: Alert and oriented Assessment and Plan (1) Colon cancer screening Narrative/Plan: Will proceed with upper and lower endoscopy Current Visit: Yes Status: Acute Code(s): Z12.11 - ENCOUNTER FOR SCREENING FOR MALIGNANT NEOPLASM OF COLON SNOMED Code(s): 881775909
[2021-07-17] MEDS ORDERED: LIDOCAINE 1% INJ 10MG/ML (20 ML MDV) ONE (10:33)
[2021-07-17] MEDS ORDERED: PROPOFOL 10 MG/ML 20 ML VIAL IV ONE (10:33)
--- NOTE | 2021-07-17 10:57 | P.PCN ---
Date of Procedure: 07/17/21 Procedure(s) Performed: PREOPERATIVE DIAGNOSIS: Abdominal pain, mild dysphagia, colon cancer screening with history of polyps POSTOPERATIVE DIAGNOSIS: Mild gastritis, small rectal polyp PROCEDURE: 1. EGD with biopsy 2. Colonoscopy with biopsy ANESTHESIA: MAC SURGEON: William Jaramillo M.D. SPECIMENS: Antrum, rectal polyp ENDOSCOPIC PROCEDURE: The patient was on the endoscopy table in the left decubitus position. The Olympus gastroscope was inserted into the oropharynx and passed under direct visualization to the region of the third portion of the duodenum. From that point the scope was slowly withdrawn inspecting all surfaces carefully. There were no neoplastic inflammatory or polypoid lesions throughout the duodenum. The pylorus was widely patent. The stomach was carefully inspected. There was mild gastritis present. A biopsy of the antrum took place to rule out H. pylori. Retroflexion revealed a normal hiatus. The esophagus was then carefully examined. There were no neoplastic inflammatory or polypoid lesions throughout the visualized esophagus. The patient was kept on the endoscopy table in the left decubitus position. The Olympus colonoscope was inserted into the anus and passed under direct visualization to the base of the cecum. The appendiceal orifice was visualized. From that point the scope was slowly withdrawn inspecting all surfaces carefully. There were no neoplastic inflammatory or polypoid lesions throughout the cecum, ascending, transverse, descending, and sigmoid colon. The rectum a small polyp was seen and removed using the cold biopsy forceps. There was no visible diverticulosis. Digital rectal examination was normal. The patient was taken to the recovery room in stable condition per anesthesia guidelines. RECOMMENDATIONS: Resume diet. Await biopsy results. Will likely recommend repeat colonoscopy 5-7 years.
[2021-07-17 11:02] VITALS: RESP 16
[2021-07-17 11:26] VITALS: BP 118/73; PULSE 57
== END 2021-07-17 12:09 | disposition home or self-care (01) ==
LOC: ORWHC2ENDO 09:16
PROVIDERS: ATTEND Surgery
DX: Z12.11 Encounter for screening for malignant neoplasm of colon (principal); K29.70 Gastritis, unspecified, without bleeding; K62.1 Rectal polyp; K31.9 Disease of stomach and duodenum, unspecified; E78.5 Hyperlipidemia, unspecified; I25.2 Old myocardial infarction; N40.0 Benign prostatic hyperplasia without lower urinary tract symptoms; Z79.82 Long term (current) use of aspirin; Z83.3 Family history of diabetes mellitus; Z87.19 Personal history of other diseases of the digestive system; Z87.442 Personal history of urinary calculi; Z95.5 Presence of coronary angioplasty implant and graft; Z86.010 Personal history of colon polyps; Z80.8 Family history of malignant neoplasm of other organs or systems
CPT/HCPCS: 45378; 43239; 88305; J2001; J2704

== ENCOUNTER → 2022-09-17 | Outpatient (CLI) | payer MEDICARE, OTHER ==
--- NOTE | 2022-09-17 15:49 | XR ---
EXAMINATION TYPE: XR KUB DATE OF EXAM: 09/17/2022 Comparison: None Clinical History: 66-year-old male N20.0 Findings: Mild to moderate stool in the right side of the abdomen. Air extends distally to the rectum. Nonobstr uctive bowel gas pattern. Suspect a punctate 4 mm nonobstructive left renal calculus. Vascular calcif ications in the pelvis. Bowel content largely obscures the right renal shadow. Impression: Suspect a punctate 4 mm left renal calculus. Bowel content largely obscures the right renal shadow.
== END | disposition home or self-care (01) ==
LOC: RADXRMAIN 10:28
PROVIDERS: ATTEND Urology
DX: N20.0 Calculus of kidney (principal)
CPT/HCPCS: 74018